=== PATIENT | female | born 2000 | race Caucasian/White ===

== ENCOUNTER 2022-02-27 15:51 | Emergency (ER) | payer OTHER ==
[~2022-02-27] VITALS: Ht 165.1 cm; Wt 72.6 kg
== END 2022-02-27 21:35 | disposition home or self-care (01) ==
LOC: ER 15:51
DX: R10.13 Epigastric pain (principal); E86.0 Dehydration; F14.10 Cocaine abuse, uncomplicated; F12.10 Cannabis abuse, uncomplicated; Z20.822 Contact with and (suspected) exposure to COVID-19

== ENCOUNTER 2022-03-01 11:35 | Emergency (ER) | payer OTHER ==
[~2022-03-01] VITALS: Ht 165.1 cm; Wt 72.6 kg
[2022-03-01] MEDS ORDERED: LEVSIN0.125 MG PO (11:50)
[2022-03-01] MEDS ORDERED: ONDANSETRON ODT4 MG PO (16:49)
[2022-03-01] MEDS ORDERED: PEPCID COMPLET1 EACH PO (16:49)
== END 2022-03-01 17:04 ==
LOC: ER 11:35
DX: K29.70 Gastritis, unspecified, without bleeding (principal); E86.0 Dehydration; R10.11 Right upper quadrant pain; Z20.822 Contact with and (suspected) exposure to COVID-19